=== PATIENT | female | born 1965 | race African-American/Black ===

== ENCOUNTER 2021-11-09 05:45 | Emergency (ER) | payer MEDICAID ==
[~2021-11-09] VITALS: Ht 149.9 cm; Wt 73.0 kg
[~2021-11-09 05:45] MED LIST: DEPAKOTE; DILANTIN
[2021-11-09] MEDS ORDERED: IPRATROPIUM BROMIDE (0.02%) 0.5MG/2.5ML NEB HHN STA (06:48)
[2021-11-09] MEDS ORDERED: ALBUTEROL (0.083%) 2.5MG/3ML NEB HHN STA (06:48)
[2021-11-09] MEDS ORDERED: PREDNISONE 20MG TABLET PO STA (06:48)
[2021-11-09] MEDS ORDERED: ACETAMINOPHEN WITH CODEINE 300/30MG TABLET PO ONE (07:00)
[2021-11-09] MEDS ORDERED: IBUPROFEN 400MG TABLET PO ONE (07:00)
[2021-11-09 08:45] VITALS: BP 145/75
[2021-11-09] MEDS ORDERED: ALBU6.7H9 INH (09:33)
[2021-11-09] MEDS ORDERED: TOPUD PO (09:33)
[2021-11-09] MEDS ORDERED: P50 PO (09:34)
== END 2021-11-09 10:54 | disposition home or self-care (01) ==
LOC: ER 05:45
DX: M54.50 Low back pain, unspecified (principal); J45.901 Unspecified asthma with (acute) exacerbation; G40.909 Epilepsy, unspecified, not intractable, without status epilepticus; Z88.5 Allergy status to narcotic agent
CPT/HCPCS: 94640; 99284; J7512; Z7610